=== PATIENT | male | born 1985 | race Hispanic/Latino ===

== ENCOUNTER 2019-07-27 14:13 | Emergency (ER) | payer SELFPAY ==
[2019-07-27 15:02] LABS: #Eosinphils 0.1 thou/uL (0.0-0.7); #Lymphocytes 1.7 thou/uL (1.20-3.40); #Monocytes 0.3 thou/uL (0.11-0.59); #Neutrophils 2.6 thou/uL (1.40-6.50); %Basophils 0.4 % (0.0-1.0); %Eosinophils 1.6 % (0.0-10.0); %Lymphocytes 35.9 % (21.0-51.0); %Monocytes 7.2 % (0.0-10.0); %Neutrophils 54.9 % (42.0-75.0); Hemoglobin 16.2 g/dL (14.0-18.0); Mean Corpuscular HGB CONC 35.6 g/dL (32.0-36.0); Mean Corpuscular Hemoglobin 30.9 pg (27.0-31.0); Mean Corpuscular Volume 86.8 fL (78.0-98.0); Mean Platelet Volume 6.7 fL (7.4-10.4); Platelet Count 234 thou/uL (130-400); RBC Distribution Width 11.3 % (11.5-14.5); Red Blood Cell (RBC) Count 5.26 mill/uL (4.70-6.10); White Blood Cell (WBC) Count 4.7 thou/uL (4.8-10.8)
--- NOTE | 2019-07-27 15:08 | RAD ---
Chest 2 views HISTORY: Dyspnea. FINDINGS: Cardiac silhouette and pulmonary vasculature are unremarkable. Mediastinum is midline. No c onfluent airspace consolidation, pneumothorax, or pleural fluid. IMPRESSION: No active cardiopulmonary abnormalities are demonstrated.
[2019-07-27 15:24] LABS: ALT (SGPT) 25 U/L (8-55); AST (SGOT) 28 U/L (5-34); Albumin 4.6 g/dL (3.5-5.0); Alkaline Phosphatase 86 U/L (40-110); Anion Gap 15 mmol/L (10-20); BUN (Urea Nitrogen) 15 mg/dL (8.9-20.6); Calc. Creatinine Clearance 0 mL/min (70-130); Calcium 9.5 mg/dL (7.8-10.44); Carbon Dioxide 19 mmol/L (22-29); Chloride 108 mmol/L (98-107); Estimated GFR-MDRD Greater than 90; Globulin 2.9 g/dL (2.4-3.5); Glucose 124 mg/dL (70-105); Potassium 3.7 mmol/L (3.5-5.1); Protein, Total 7.5 g/dL (6.0-8.3); Sodium 138 mmol/L (136-145)
[2019-07-27] MEDS ORDERED: Lorazepam 2 MG/ML VIAL ONE (15:40)
[2019-07-27] MEDS ORDERED: Aspirin Chewable 81 MG TAB ONE (15:40)
--- NOTE | 2019-07-27 15:46 | CT ---
CT arteriogram chest with IV contrast and 3-D imaging HISTORY: Dyspnea. Tachypnea. FINDINGS: No comparison. There is good contrast opacification pulmonary arteries and thoracic aorta w ith normal branching of the great vessels at the aortic arch. No mediastinal adenopathy. No pleural fluid or lobar consolidation. Airways are patent. IMPRESSION: No CT evidence of pulmonary embolus.
--- NOTE | 2019-08-02 14:28 | EKG ---
Test Reason : Blood Pressure : / mmHG Vent. Rate : 096 BPM Atrial Rate : 096 BPM P-R Int : 138 ms QRS Dur : 102 ms QT Int : 370 ms P-R-T Axes : 063 051 035 degrees QTc Int : 467 ms Normal sinus rhythm Possible Left atrial enlargement Incomplete right bundle branch block Borderline ECG Confirmed by SHELLY HECTOR, JAMES ([id number]), editor magazine MARIA GUADALUPE GALLOWAY ([id number]) on 08/02/2019 2:28:14 PM Referred By: Confirmed By:JAMES BRAVO MD
== END 2019-07-27 17:09 | disposition home or self-care (01) ==
LOC: ERS 14:13
DX: R07.9 Chest pain, unspecified (principal); R42 Dizziness and giddiness; R45.0 Nervousness; T43.225A Adverse effect of selective serotonin reuptake inhibitors, initial encounter; T42.8X5A Adverse effect of antiparkinsonism drugs and other central muscle-tone depressants, initial encounter; E11.9 Type 2 diabetes mellitus without complications; E78.5 Hyperlipidemia, unspecified
CPT/HCPCS: 71046; 71275; 80053; 83735; 84484; 85025; 93005; 94760; 96361; 96374; J2060

== ENCOUNTER 2021-07-05 09:53 | Inpatient (IN) | payer SELFPAY ==
[2021-07-05] MEDS ORDERED: Iopamidol-370 76% 500 ML 1 ML ONE (11:48)
[2021-07-05 12:15] LABS: #Lymphocytes 1.1 thou/uL (1.20-3.40); #Monocytes 0.5 thou/uL (0.11-0.59); #Neutrophils 4.3 thou/uL (1.40-6.50); %Basophils 0.1 % (0.0-1.0); %Lymphocytes 18.4 % (21.0-51.0); %Monocytes 8.2 % (0.0-10.0); %Neutrophils 73.2 % (42.0-75.0); Hemoglobin 15.1 g/dL (14.0-18.0); Mean Corpuscular HGB CONC 33.9 g/dL (32.0-36.0); Mean Corpuscular Hemoglobin 30.3 pg (27.0-31.0); Mean Corpuscular Volume 89.4 fL (78.0-98.0); Platelet Count 649 thou/uL (130-400); RBC Distribution Width 10.9 % (11.5-14.5); Red Blood Cell (RBC) Count 4.97 mill/uL (4.70-6.10); White Blood Cell (WBC) Count 5.8 thou/uL (4.8-10.8)
[2021-07-05] MEDS ORDERED: Ketorolac Tromethamine 30 MG/ML VIAL ONE (12:52)
[2021-07-05] MEDS ORDERED: Pharmacy to Dose BARICITINIB IVPB PRN ×2 (15:30→15:47)
[2021-07-05] MEDS ORDERED: Dexamethasone 10 MG/ML VIAL ONE (15:35)
[2021-07-05] MEDS ORDERED: Acetaminophen 325 MG TAB PO PRN (15:45)
[2021-07-05] MEDS ORDERED: Ondansetron PF 4 MG/2 ML Vial IVP PRN (15:45)
[2021-07-05] MEDS ORDERED: Ondansetron ODT 4 MG TAB PO PRN (15:45)
[2021-07-05 17:09] LABS: ALT (SGPT) 51 U/L (8-55); AST (SGOT) 29 U/L (5-34); Albumin 3.3 g/dL (3.5-5.0); Alkaline Phosphatase 152 U/L (40-110); Anion Gap 14 mmol/L (10-20); BUN (Urea Nitrogen) 8 mg/dL (8.9-20.6); Bilirubin, Total 0.4 mg/dL (0.2-1.2); Calc. Creatinine Clearance 0 mL/min (70-130); Calcium 8.5 mg/dL (7.8-10.44); Carbon Dioxide 20 mmol/L (22-29); Chloride 109 mmol/L (98-107); Globulin 3.3 g/dL (2.4-3.5); Glucose 130 mg/dL (70-105); Potassium 3.9 mmol/L (3.5-5.1); Protein, Total 6.6 g/dL (6.0-8.3); Sodium 139 mmol/L (136-145)
[2021-07-05] MEDS ORDERED: Albuterol Sulfate 2.5 mg/3 ml Neb NEB SCH (19:00)
[2021-07-05] MEDS: Albuterol 200 PUFF (6.7GM INHALER) INH SCH (20:00)
[2021-07-05 20:20] VITALS: BMI 24.1
[2021-07-05] MEDS: Enoxaparin Sodium 40 MG/0.4 ML SYRINGE SC SCH (20:45)
[2021-07-05] MEDS: Guaifenesin DM 100-10/5 ML UDCUP PO PRN (20:46)
[2021-07-06] MEDS: Albuterol 200 PUFF (6.7GM INHALER) INH SCH ×4 (00:41→18:06)
[2021-07-06] MEDS: Dexamethasone 4 mg/ml Vial SLOW IVP SCH (08:12)
[2021-07-06] MEDS: Cholecalciferol 1,000 UNITS (25 MCG) TAB PO SCH (08:19)
[2021-07-06] MEDS: Ascorbic Acid 500 mg Chewable Tablet PO SCH ×2 (08:19→08:20)
[2021-07-06] MEDS: Enoxaparin Sodium 40 MG/0.4 ML SYRINGE SC SCH ×2 (08:20→20:40)
[2021-07-06] MEDS: Zinc Sulfate 220 MG CAP PO SCH (08:20)
[2021-07-06 09:38] LABS: #Lymphocytes 1.7 thou/uL (1.20-3.40); #Monocytes 0.5 thou/uL (0.11-0.59); #Neutrophils 7.1 thou/uL (1.40-6.50); %Basophils 0.1 % (0.0-1.0); %Eosinophils 0.1 % (0.0-10.0); %Lymphocytes 18.6 % (21.0-51.0); %Monocytes 5.8 % (0.0-10.0); %Neutrophils 75.5 % (42.0-75.0); Hemoglobin 14.3 g/dL (14.0-18.0); Mean Corpuscular HGB CONC 32.7 g/dL (32.0-36.0); Mean Corpuscular Hemoglobin 29.6 pg (27.0-31.0); Mean Corpuscular Volume 90.7 fL (78.0-98.0); Platelet Count 643 thou/uL (130-400); Red Blood Cell (RBC) Count 4.84 mill/uL (4.70-6.10); White Blood Cell (WBC) Count 9.4 thou/uL (4.8-10.8)
[2021-07-06 10:17] LABS: Anion Gap 14 mmol/L (10-20); BUN (Urea Nitrogen) 11 mg/dL (8.9-20.6); Calc. Creatinine Clearance 114 mL/min (70-130); Calcium 8.6 mg/dL (7.8-10.44); Carbon Dioxide 21 mmol/L (22-29); Chloride 107 mmol/L (98-107); Glucose 135 mg/dL (70-105); Potassium 3.9 mmol/L (3.5-5.1); Sodium 138 mmol/L (136-145)
[2021-07-06] MEDS ORDERED: Aspirin 81 mg Enteric Coated Tablet PO SCH (18:45)
[2021-07-07] MEDS: Albuterol 200 PUFF (6.7GM INHALER) INH SCH ×4 (02:00→18:41)
[2021-07-07 07:08] LABS: #Lymphocytes 2.2 thou/uL (1.20-3.40); #Monocytes 1.1 thou/uL (0.11-0.59); #Neutrophils 7.3 thou/uL (1.40-6.50); %Basophils 0.1 % (0.0-1.0); %Eosinophils 0.4 % (0.0-10.0); %Lymphocytes 20.8 % (21.0-51.0); %Monocytes 10.6 % (0.0-10.0); %Neutrophils 68.1 % (42.0-75.0); Hemoglobin 13.8 g/dL (14.0-18.0); Mean Corpuscular Hemoglobin 30.2 pg (27.0-31.0); Mean Corpuscular Volume 91.6 fL (78.0-98.0); Mean Platelet Volume 5.9 fL (7.4-10.4); Platelet Count 653 thou/uL (130-400); RBC Distribution Width 11.2 % (11.5-14.5); Red Blood Cell (RBC) Count 4.57 mill/uL (4.70-6.10); White Blood Cell (WBC) Count 10.7 thou/uL (4.8-10.8)
[2021-07-07 07:36] LABS: ALT (SGPT) 81 U/L (8-55); AST (SGOT) 50 U/L (5-34); Albumin 3.3 g/dL (3.5-5.0); Alkaline Phosphatase 135 U/L (40-110); Anion Gap 12 mmol/L (10-20); BUN (Urea Nitrogen) 16 mg/dL (8.9-20.6); Bilirubin, Total 0.3 mg/dL (0.2-1.2); CRP (Inflammatory) 1.96 mg/dL (= or < 0.5); Calc. Creatinine Clearance 103 mL/min (70-130); Calcium 8.9 mg/dL (7.8-10.44); Carbon Dioxide 24 mmol/L (22-29); Chloride 108 mmol/L (98-107); Globulin 3.2 g/dL (2.4-3.5); Glucose 99 mg/dL (70-105); Potassium 4.6 mmol/L (3.5-5.1); Protein, Total 6.5 g/dL (6.0-8.3); Sodium 139 mmol/L (136-145)
[2021-07-07] MEDS: Ascorbic Acid 500 mg Chewable Tablet PO SCH (08:28)
[2021-07-07] MEDS: Aspirin 81 mg Enteric Coated Tablet PO SCH (08:28)
[2021-07-07] MEDS: Enoxaparin Sodium 40 MG/0.4 ML SYRINGE SC SCH ×2 (08:28→20:36)
[2021-07-07] MEDS: Dexamethasone 4 mg/ml Vial SLOW IVP SCH (08:29)
[2021-07-07] MEDS: Zinc Sulfate 220 MG CAP PO SCH (08:29)
[2021-07-07] MEDS: Cholecalciferol 1,000 UNITS (25 MCG) TAB PO SCH (08:29)
[2021-07-08] MEDS: Albuterol 200 PUFF (6.7GM INHALER) INH SCH ×4 (00:56→19:40)
[2021-07-08] MEDS: Guaifenesin DM 100-10/5 ML UDCUP PO PRN (04:37)
[2021-07-08 07:35] LABS: ALT (SGPT) 113 U/L (8-55); AST (SGOT) 69 U/L (5-34); Albumin 3.4 g/dL (3.5-5.0); Alkaline Phosphatase 148 U/L (40-110); Anion Gap 18 mmol/L (10-20); BUN (Urea Nitrogen) 22 mg/dL (8.9-20.6); Bilirubin, Total 0.4 mg/dL (0.2-1.2); Calc. Creatinine Clearance 100 mL/min (70-130); Calcium 8.8 mg/dL (7.8-10.44); Carbon Dioxide 20 mmol/L (22-29); Chloride 106 mmol/L (98-107); Globulin 3.3 g/dL (2.4-3.5); Glucose 98 mg/dL (70-105); Potassium 4.5 mmol/L (3.5-5.1); Protein, Total 6.7 g/dL (6.0-8.3); Sodium 139 mmol/L (136-145)
[2021-07-08] MEDS: Aspirin 81 mg Enteric Coated Tablet PO SCH (08:31)
[2021-07-08] MEDS: Cholecalciferol 1,000 UNITS (25 MCG) TAB PO SCH (08:31)
[2021-07-08] MEDS: Ascorbic Acid 500 mg Chewable Tablet PO SCH (08:32)
[2021-07-08] MEDS: Enoxaparin Sodium 40 MG/0.4 ML SYRINGE SC SCH ×2 (08:33→20:18)
[2021-07-08] MEDS: Dexamethasone 4 mg/ml Vial SLOW IVP SCH (08:33)
[2021-07-08] MEDS: Zinc Sulfate 220 MG CAP PO SCH (08:33)
[2021-07-09] MEDS: Albuterol 200 PUFF (6.7GM INHALER) INH SCH ×5 (01:15→18:39)
[2021-07-09 06:51] LABS: #Lymphocytes 3.2 thou/uL (1.20-3.40); #Monocytes 1.2 thou/uL (0.11-0.59); #Neutrophils 9.7 thou/uL (1.40-6.50); %Eosinophils 0.3 % (0.0-10.0); %Lymphocytes 22.6 % (21.0-51.0); %Monocytes 8.4 % (0.0-10.0); %Neutrophils 68.7 % (42.0-75.0); Hemoglobin 15.8 g/dL (14.0-18.0); Mean Corpuscular HGB CONC 34.2 g/dL (32.0-36.0); Mean Corpuscular Hemoglobin 31.2 pg (27.0-31.0); Mean Corpuscular Volume 91.3 fL (78.0-98.0); Mean Platelet Volume 6.4 fL (7.4-10.4); Platelet Count 599 thou/uL (130-400); RBC Distribution Width 11.6 % (11.5-14.5); Red Blood Cell (RBC) Count 5.07 mill/uL (4.70-6.10); White Blood Cell (WBC) Count 14.1 thou/uL (4.8-10.8)
[2021-07-09 07:16] LABS: ALT (SGPT) 110 U/L (8-55); AST (SGOT) 41 U/L (5-34); Albumin 3.6 g/dL (3.5-5.0); Alkaline Phosphatase 135 U/L (40-110); Anion Gap 16 mmol/L (10-20); BUN (Urea Nitrogen) 22 mg/dL (8.9-20.6); Bilirubin, Total 0.4 mg/dL (0.2-1.2); Calc. Creatinine Clearance 107 mL/min (70-130); Calcium 9.3 mg/dL (7.8-10.44); Carbon Dioxide 22 mmol/L (22-29); Chloride 105 mmol/L (98-107); Globulin 3.4 g/dL (2.4-3.5); Glucose 80 mg/dL (70-105); Potassium 4.6 mmol/L (3.5-5.1); Sodium 138 mmol/L (136-145)
[2021-07-09 07:30] LABS: Ferritin 1371.83 ng/mL (22-322)
[2021-07-09 07:43] LABS: HBSAB Concentration Less than 8.00 mIU/mL; HBSAg Index 0.24 S/CO (0-0.99); Hep B Core Total Ab Non-Reactive (NonReactive); Hep B Core Total Index 0.08 S/CO (0-0.79); Hep B Surf AB Non-Reactive (NonReactive); Hep B Surf Ag Non-Reactive S/CO (NonReactive); Hep C IgG Ab Non-Reactive (NonReactive); Hep C Index 0.55 S/CO (0-0.79)
[2021-07-09] MEDS: Dexamethasone 4 mg/ml Vial SLOW IVP SCH (08:22)
[2021-07-09] MEDS: Enoxaparin Sodium 40 MG/0.4 ML SYRINGE SC SCH (08:23)
[2021-07-09] MEDS: Aspirin 81 mg Enteric Coated Tablet PO SCH (08:23)
[2021-07-09] MEDS: Ascorbic Acid 500 mg Chewable Tablet PO SCH (08:23)
[2021-07-09] MEDS: Zinc Sulfate 220 MG CAP PO SCH (08:24)
[2021-07-09] MEDS: Cholecalciferol 1,000 UNITS (25 MCG) TAB PO SCH (08:24)
[2021-07-09] MEDS ORDERED: Nitroglycerin 0.4 MG TAB (25 Tab Bottle) SL PRN (11:56)
[2021-07-09] MEDS ORDERED: Morphine 2 MG/ML VIAL SLOW IVP SCH (12:00)
[2021-07-09 13:18] LABS: Troponin I Less than 0.010 ng/mL (< 0.028)
[2021-07-10] MEDS: Enoxaparin Sodium 40 MG/0.4 ML SYRINGE SC SCH ×2 (07:07→08:09)
[2021-07-10] MEDS: Albuterol 200 PUFF (6.7GM INHALER) INH SCH ×3 (07:07→12:17)
[2021-07-10 07:10] LABS: #Lymphocytes 2.3 thou/uL (1.20-3.40); #Monocytes 1.2 thou/uL (0.11-0.59); #Neutrophils 7.8 thou/uL (1.40-6.50); %Basophils 0.1 % (0.0-1.0); %Eosinophils 0.3 % (0.0-10.0); %Lymphocytes 20.3 % (21.0-51.0); %Monocytes 10.5 % (0.0-10.0); %Neutrophils 68.9 % (42.0-75.0); Mean Corpuscular HGB CONC 32.6 g/dL (32.0-36.0); Platelet Count 593 thou/uL (130-400); RBC Distribution Width 12.1 % (11.5-14.5); Red Blood Cell (RBC) Count 5.02 mill/uL (4.70-6.10); White Blood Cell (WBC) Count 11.3 thou/uL (4.8-10.8)
[2021-07-10 07:23] LABS: Anion Gap 15 mmol/L (10-20); BUN (Urea Nitrogen) 23 mg/dL (8.9-20.6); Calc. Creatinine Clearance 98 mL/min (70-130); Calcium 9.1 mg/dL (7.8-10.44); Carbon Dioxide 25 mmol/L (22-29); Chloride 104 mmol/L (98-107); Glucose 80 mg/dL (70-105); Potassium 4.6 mmol/L (3.5-5.1); Sodium 139 mmol/L (136-145)
[2021-07-10] MEDS ORDERED: Dexamethasone 4 MG TAB PO SCH (08:00)
[2021-07-10] MEDS: Ascorbic Acid 500 mg Chewable Tablet PO SCH (08:09)
[2021-07-10] MEDS: Aspirin 81 mg Enteric Coated Tablet PO SCH (08:09)
[2021-07-10] MEDS: Cholecalciferol 1,000 UNITS (25 MCG) TAB PO SCH (08:10)
[2021-07-10] MEDS: Zinc Sulfate 220 MG CAP PO SCH (08:10)
[2021-07-10 17:35] VITALS: BP 113/77; TEMP 97.4
== END 2021-07-10 17:13 | disposition home or self-care (01) | DRG 177 ==
LOC: ERS 09:53 → T4-B 14:57
PROVIDERS: ADMIT Internal Medicine; ATTEND Hospitalist
PROC: 8E0ZXY6 Isolation (ICD-10-PCS; principal; 2021-07-05)
PROC: 3E0333Z Introduction of Anti-inflammatory into Peripheral Vein, Percutaneous Approach (ICD-10-PCS; 2021-07-06)
DX: U07.1 COVID-19 (principal); J12.82 Pneumonia due to coronavirus disease 2019; J96.01 Acute respiratory failure with hypoxia; E11.9 Type 2 diabetes mellitus without complications; E78.5 Hyperlipidemia, unspecified; F32.9 Major depressive disorder, single episode, unspecified; D69.6 Thrombocytopenia, unspecified
CPT/HCPCS: 36415; 36416; 71045; 71275; 80048; 80053; 82728; 83880; 84145; 84484; 85025; 85379; 86140; 86704; 86706; 86803; 87340; 93005; 93010; 96374; 96375; J1100; J1650; J1885; J2270; J8540; Q9967

== ENCOUNTER 2023-06-13 10:18 | Observation (INO) | payer OTHER, SELFPAY ==
[~2023-06-13 10:18] MED LIST: Iopamidol-370 76% 500 ML MDV (1 ML CHARGE) ONE
[2023-06-13] MEDS ORDERED: Morphine 4 MG/ML VIAL ONE (10:53)
[2023-06-13] MEDS ORDERED: Ondansetron PF 4 MG/2 ML Vial ONE (10:53)
[2023-06-13 11:07] LABS: #Monocytes 0.6 thou/uL (0.11-0.59); %Basophils 0.4 % (0.0-1.0); %Eosinophils 0.8 % (0.0-10.0); %Lymphocytes 49.4 % (21.0-51.0); %Monocytes 10.9 % (0.0-10.0); %Neutrophils 38.3 % (42.0-75.0); Hematocrit 48.5 % (42.0-52.0); Hemoglobin 17.2 g/dL (14.0-18.0); Mean Corpuscular HGB CONC 35.5 g/dL (32.0-36.0); Mean Corpuscular Hemoglobin 31.1 pg (27.0-31.0); Mean Corpuscular Volume 87.7 fl (78.0-98.0); Mean Platelet Volume 9.1 fL (7.4-10.4); Platelet Count 230 10x3/uL (130-400); RBC Distribution Width 12.3 % (11.5-14.5); Red Blood Cell (RBC) Count 5.53 mill/uL (4.70-6.10); White Blood Cell (WBC) Count 5.2 10x3/uL (4.8-10.8)
[2023-06-13 11:30] LABS: ALT (SGPT) 101 U/L (8-55); AST (SGOT) 147 U/L (5-34); Albumin 4.9 g/dL (3.5-5.0); Alkaline Phosphatase 106 U/L (40-110); Anion Gap 20 mmol/L (10-20); BUN (Urea Nitrogen) 7 mg/dL (8.9-20.6); Bilirubin, Total 1.1 mg/dL (0.2-1.2); Calc. Creatinine Clearance 0 mL/min (70-130); Calcium 9.5 mg/dL (7.8-10.44); Carbon Dioxide 21 mmol/L (22-29); Chloride 98 mmol/L (98-107); Estimated GFR 116; Globulin 3.4 g/dL (2.4-3.5); Glucose 121 mg/dL (70-105); Lipase 45 U/L (8-78); Potassium 3.3 mmol/L (3.5-5.1); Protein, Total 8.3 g/dL (6.0-8.3); Sodium 136 mmol/L (136-145)
[2023-06-13] MEDS ORDERED: Potassium Chloride 20 MEQ TAB ONE (12:04)
[2023-06-13] MEDS ORDERED: Midazolam HCl 2 mg/2 ml Vial ONE (12:18)
[2023-06-13] MEDS ORDERED: Ketorolac Tromethamine 30 MG/ML VIAL ONE (12:18)
[2023-06-13] MEDS ORDERED: Prochlorperazine 10 MG/2 ML VIAL ONE (12:18)
[2023-06-13] MEDS ORDERED: Prochlorperazine 10 MG/2 ML VIAL IVP SCH (12:30)
[2023-06-13] MEDS ORDERED: Thiamine HCl 200 MG/2 ML VIAL SLOW IVP SCH ×2 (12:30→15:00)
[2023-06-13 12:57] LABS: Troponin I Less than 0.010 ng/mL (< 0.028)
[2023-06-13 14:06] LABS: Bacteria/HPF None Seen HPF (None Seen); Bilirubin Negative (Negative); Blood, Urine Trace (Negative); CAUTI Indications for Culture Dysuria,urgency,freq; Clarity Clear (Clear); Glucose, Urine (Dipstick) Normal (Negative); Ketone, Urine Negative (Negative); Leukocyte Negative Leu/uL (Negative); Nitrite Negative (Negative); Protein, Urine (Dipstick) Negative (Neg-Trace); RBC/HPF 0-3 HPF (0-3); Specific Gravity, Urine 1.009 (1.002-1.036); Squamous Epithelial None Seen HPF (0-3); Urobilinogen Normal mg/dL (Less than 2); WBC/HPF 0-3 HPF (0-3); pH, Urine 6.5 (5.0-9.0)
[2023-06-13 14:14] LABS: Urine Culture Reflex No No
[2023-06-13] MEDS ORDERED: Glucagon 1 MG/ML KIT IM PRN (14:36)
[2023-06-13] MEDS ORDERED: Lorazepam 2 MG/ML VIAL IM PRN (14:36)
[2023-06-13] MEDS ORDERED: Lorazepam 1 MG TAB PO PRN (14:36)
[2023-06-13] MEDS ORDERED: Dextrose 5% in Water 1,000 ML IV PRN (14:36)
[2023-06-13] MEDS ORDERED: Dextrose 50% Abboject 50 ML SYRINGE SLOW IVP PRN (14:36)
[2023-06-13] MEDS ORDERED: Ondansetron ODT 4 MG TAB PO PRN (14:36)
[2023-06-13] MEDS ORDERED: HumaLOG 300 UNITS/3 ML VIAL SC PRN ×2 (14:36)
[2023-06-13] MEDS ORDERED: Lactated Ringer's 500 ML IV SCH (14:45)
[2023-06-13] MEDS ORDERED: Electrolyte Replacement Protocol 1 EACH FS SCH (14:45)
[2023-06-13] MEDS ORDERED: LORazepam 2 MG/ML SYR.(CARPUJECT) ONE (14:52)
[2023-06-13] MEDS: Lorazepam 1 MG TAB PO SCH ×2 (15:13→20:30)
[2023-06-13] MEDS: Lactated Ringer's 1,000 ML IV SCH (15:26)
[2023-06-13 15:33] LABS: Lactic Acid 1.9 mmol/L (0.5-2.2)
[2023-06-13 15:36] LABS: Magnesium 1.7 mg/dL (1.6-2.6); Phosphorus 3.4 mg/dL (2.3-4.7)
[2023-06-13] MEDS ORDERED: Potassium Chloride 20 MEQ TAB PO SCH (15:45)
[2023-06-13] MEDS ORDERED: Magnesium 2 GM/50 ML(in water) 2 GM in Premix Bag 1 BAG IVPB SCH (16:30)
[2023-06-13] MEDS ORDERED: Magnesium 2 GM/50 ML BAG (IN WATER) ONE (16:51)
[2023-06-13 18:16] VITALS: BMI 21.6
[2023-06-13] MEDS: Famotidine 20 MG TAB PO SCH (20:30)
[2023-06-13 21:09] LABS: Lactic Acid 1.6 mmol/L (0.5-2.2)
[2023-06-13] MEDS: metroNIDAZOLE 500 MG in Premix Bag 1 BAG IVPB SCH (21:47)
[2023-06-14] MEDS: Lorazepam 1 MG TAB PO SCH ×2 (04:10→08:17)
[2023-06-14] MEDS: Lactated Ringer's 1,000 ML IV SCH (04:11)
[2023-06-14 05:43] LABS: ALT (SGPT) 66 U/L (8-55); AST (SGOT) 96 U/L (5-34); Albumin 3.7 g/dL (3.5-5.0); Alkaline Phosphatase 76 U/L (40-110); Anion Gap 12 mmol/L (10-20); BUN (Urea Nitrogen) 10 mg/dL (8.9-20.6); Bilirubin, Total 1.1 mg/dL (0.2-1.2); Calc. Creatinine Clearance 96 mL/min (70-130); Calcium 8.5 mg/dL (7.8-10.44); Carbon Dioxide 25 mmol/L (22-29); Chloride 105 mmol/L (98-107); Estimated GFR 109; Globulin 2.3 g/dL (2.4-3.5); Glucose 94 mg/dL (70-105); Magnesium 2.3 mg/dL (1.6-2.6); Sodium 138 mmol/L (136-145)
[2023-06-14] MEDS: metroNIDAZOLE 500 MG in Premix Bag 1 BAG IVPB SCH ×2 (05:59→15:10)
[2023-06-14 06:31] LABS: #Eosinphils 0.1 thou/uL (0.0-0.7); #Monocytes 0.7 thou/uL (0.11-0.59); #Neutrophils 3.2 thou/uL (1.40-6.50); %Basophils 0.4 % (0.0-1.0); %Eosinophils 2.3 % (0.0-10.0); %Lymphocytes 21.6 % (21.0-51.0); %Monocytes 14.2 % (0.0-10.0); %Neutrophils 61.5 % (42.0-75.0); Hematocrit 43.3 % (42.0-52.0); Hemoglobin 14.6 g/dL (14.0-18.0); Mean Corpuscular HGB CONC 33.7 g/dL (32.0-36.0); Mean Corpuscular Hemoglobin 31.6 pg (27.0-31.0); Mean Platelet Volume 8.7 fL (7.4-10.4); Platelet Count 181 10x3/uL (130-400); RBC Distribution Width 12.4 % (11.5-14.5); Red Blood Cell (RBC) Count 4.62 mill/uL (4.70-6.10); White Blood Cell (WBC) Count 5.1 10x3/uL (4.8-10.8)
[2023-06-14 06:36] LABS: Mean Corpuscular Volume 93.7 fl (78.0-98.0)
[2023-06-14] MEDS: Famotidine 20 MG TAB PO SCH (08:17)
[2023-06-14] MEDS ORDERED: Multivit, Therapeutic 1 TAB PO SCH (09:00)
[2023-06-14] MEDS ORDERED: Folic Acid 1 MG TAB PO SCH (09:00)
[2023-06-14 12:16] VITALS: BP 133/77; TEMP 98.4
[2023-06-14] MEDS ORDERED: Lorazepam 1 MG TAB PO PRN (14:37)
[2023-06-15] MEDS ORDERED: Lorazepam 1 MG TAB PO PRN (14:37)
[2023-06-15] MEDS ORDERED: Lorazepam 0.5 MG TAB PO SCH (15:00)
[2023-06-16] MEDS ORDERED: Lorazepam 0.5 MG TAB PO PRN (14:37)
[2023-06-16] MEDS ORDERED: Thiamine 100 MG TAB PO SCH (15:00)
== END 2023-06-14 16:12 | disposition home or self-care (01) ==
LOC: ERS 10:18 → ERHOLD 14:14 → 2NO 17:54
PROVIDERS: ADMIT Family Medicine; ATTEND Family Medicine
DX: R10.32 Left lower quadrant pain (principal); R74.02 Elevation of levels of lactic acid dehydrogenase [LDH]; F10.10 Alcohol abuse, uncomplicated; K76.0 Fatty (change of) liver, not elsewhere classified; N13.30 Unspecified hydronephrosis; Z79.899 Other long term (current) drug therapy
CPT/HCPCS: 36415; 36416; 74177; 80053; 80307; 81001; 83605; 83690; 83735; 84100; 84484; 85025; 87040; 87086; 93005; 94760; 96361; 96374; 96375; 96376; G0378; J0744; J0780; J1885; J2060; J2250; J2270; J2405; J3411; J3475; J7120; Q9967

== ENCOUNTER 2024-08-18 05:09 | Emergency (ER) | payer SELFPAY ==
[2024-08-18] MEDS ORDERED: Morphine 4 MG/ML VIAL ONE (05:34)
[2024-08-18] MEDS ORDERED: Ondansetron PF 4 MG/2 ML Vial ONE (05:34)
[2024-08-18 06:05] LABS: #Basophils 0.02 10x3/uL (0.0-0.2); #Eosinophils 0.01 10x3/uL (0.0-0.7); #Monocytes 0.35 10x3/uL (0.11-0.59); #Neutrophils 3.99 10x3/uL (1.40-6.50); %Basophils 0.4 % (0.0-1.0); %Eosinophils 0.2 % (0.0-10.0); %Lymphocytes 13.5 % (21.0-51.0); %Monocytes 6.9 % (0.0-10.0); Hematocrit 49.7 % (42.0-52.0); Mean Corpuscular HGB CONC 36.2 g/dL (32.0-36.0); Mean Corpuscular Hemoglobin 31.3 pg (27.0-31.0); Mean Corpuscular Volume 86.3 fL (78.0-98.0); Mean Platelet Volume 8.4 fL (7.4-10.4); Platelet Count 233 10x3/uL (130-400); RBC Distribution Width 11.6 % (11.5-14.5); Red Blood Cell (RBC) Count 5.76 mill/uL (4.70-6.10); White Blood Cell (WBC) Count 5.05 10x3/uL (4.8-10.8)
[2024-08-18 06:38] LABS: ALT (SGPT) 34 U/L (8-55); AST (SGOT) 85 U/L (5-34); Albumin 4.5 g/dL (3.5-5.0); Alkaline Phosphatase 94 U/L (40-110); Anion Gap 22 mmol/L (10-20); BUN (Urea Nitrogen) 9 mg/dL (8.9-20.6); Bilirubin, Total 1.2 mg/dL (0.2-1.2); Calc. Creatinine Clearance 0 mL/min (70-130); Calcium 9.3 mg/dL (7.8-10.44); Carbon Dioxide 23 mmol/L (22-29); Chloride 99 mmol/L (98-107); Estimated GFR 116; Globulin 3.7 g/dL (2.4-3.5); Glucose 154 mg/dL (70-105); Lipase 33 U/L (8-78); Potassium 3.6 mmol/L (3.5-5.1); Protein, Total 8.2 g/dL (6.0-8.3); Sodium 140 mmol/L (136-145)
[2024-08-18 06:42] LABS: Bacteria/HPF None Seen HPF (None Seen); Bilirubin Negative (Negative); Blood, Urine 1+ (Negative); CAUTI Indications for Culture Pelvic or flank pain; Clarity Turbid (Clear); Glucose, Urine (Dipstick) Normal (Negative); Ketone, Urine Negative (Negative); Leukocyte Negative Leu/uL (Negative); Nitrite Negative (Negative); Protein, Urine (Dipstick) 30 mg/dL (Neg-Trace); Specific Gravity, Urine 1.013 (1.002-1.036); Squamous Epithelial 0-3 HPF (0-3); Urobilinogen Normal mg/dL (Less than 2); WBC/HPF 0-3 HPF (0-3)
[2024-08-18] MEDS ORDERED: Pantoprazole 40 MG VIAL ONE (06:48)
[2024-08-18 06:49] LABS: Urine Culture Reflex No No
[2024-08-18 06:50] LABS: Troponin I Less than 0.010 ng/mL (< 0.028)
[2024-08-18] MEDS ORDERED: Iopamidol-370 76% 500 ML MDV (1 ML CHARGE) ONE (13:10)
== END 2024-08-18 08:15 | disposition home or self-care (01) ==
LOC: ERS 05:09
DX: K20.90 Esophagitis, unspecified without bleeding (principal); E11.9 Type 2 diabetes mellitus without complications
CPT/HCPCS: 74177; 80053; 81001; 83690; 84484; 85025; 93005; 96361; 96374; 96375; J2272; J2405; J2470; Q9967